=== PATIENT | female | born 1930 | race Caucasian/White ===

== ENCOUNTER 2019-02-19 14:47 | Emergency (ER) | payer MEDICARE, OTHER ==
--- NOTE | 2019-02-19 15:57 | EDM.PDOC ---
ED HPI GENERAL MEDICAL PROBLEM - General Chief Complaint: Lower Extremity Injury/Pain Stated Complaint: GOUT RIGHT FOOT Time Seen by Provider: 02/19/19 15:11 Source of Information: Reports: Patient History Limitations: Reports: No Limitations - History of Present Illness INITIAL COMMENTS - FREE TEXT/NARRATIVE: This lady comes in complaining of gout. The left foot has been swollen and red very painful since last night. She had gout in the left foot about 2 months ago. The only medication she's taken is Tylenol. Right Foot Pain Score (Numeric/FACES): 10 - Related Data Allergies Allergy/AdvReac Type Severity Reaction Status Date / Time No Known Allergies Allergy Verified 02/19/19 15:13 Home Meds: Home Meds Aspirin [Yared Chewable] 81 mg PO 08/01/13 [History] Furosemide 30 mg PO DAILY 08/01/13 [History] Metoprolol Tartrate [Lopressor] 75 mg PO BID 08/01/13 [History] rOPINIRole HCl [Ropinirole HCl] 0.5 mg PO BEDTIME 08/01/13 [History] Albuterol [Ventolin HFA] 2 puff IH Q4HR 02/19/19 [History] Albuterol/Ipratropium [DuoNeb 3.0-0.5 MG/3 ML] 3 ml IH Q4HR 02/19/19 [History] Budesonide/Formoterol Fumarate [Symbicort 80-4.5 Mcg Inhaler] 2 puff IH BID [History] Cyanocobalamin (Vitamin B-12) [B-12] 1,000 mcg PO DAILY 02/19/19 [History] Magnesium Oxide [Magnesium] 400 mg PO DAILY 02/19/19 [History] Ubidecarenone [Co Q-10] 200 mg PO DAILY 02/19/19 [History] atorvaSTATin [Lipitor] 40 mg PO BEDTIME 02/19/19 [History] Past Medical History HEENT History: Reports: Cataract, Impaired Vision Cardiovascular History: Reports: Heart Valve Replacement, Hypertension, [place] Respiratory History: Reports: Asthma, Bronchitis, Recurrent Gastrointestinal History: Reports: Cholelithiasis [employer] History: Reports: Musculoskeletal History: Reports: Arthritis, Fracture, Gout Psychiatric History: Reports: Depression - Past Surgical History HEENT Surgical History: Reports: Cataract Surgery Cardiovascular Surgical History: Reports: Coronary Artery Bypass, Coronary Artery Stent GI Surgical History: Reports: Bariatric Procedure, Cholecystectomy Female Surgical History: Reports: Hysterectomy Social & Family History - Tobacco Use Smoking Status *Q: Never Smoker - Caffeine Use Caffeine Use: Reports: Coffee - Recreational Drug Use Recreational Drug Use: No Review of Systems - Review of Systems Review Of Systems: ROS reveals no pertinent complaints other than HPI. ED EXAM, GENERAL - Physical Exam Exam: See Below Exam Limited By: No Limitations General Appearance: Alert, WD/WN, No Apparent Distress Extremities: Other (There is redness warmth and swelling to the first metatarsophalangeal joint of the right foot. This looks like typical gout.) Course - Vital Signs Last Recorded V/S: Last Vital Signs Temp 36.7 C 02/19/19 15:07 Pulse 78 02/19/19 15:05 Resp 16 02/19/19 15:07 BP 198/87 H 02/19/19 15:07 Pulse Ox 93 L 02/19/19 15:07 - Re-Assessments/Exams Free Text/Narrative Re-Assessment/Exam: 02/19/19 16:00 I told her about culture saying that she is not interested in trying that 02/19/19 16:00. Her blood pressure is noted. She's not having any kind of end organ damage so that will be treated. She is having a fair amount of pain. Departure - Departure Time of Disposition: 15:57 Disposition: Home, Self-Care 01 Condition: Fair Clinical Impression: Gout of right foot - Discharge Information Referrals: Bijal Choe PA [Primary Care Provider] - Additional Instructions: Take Narco 5/325 (#18) one tablet every 4-6 hours as needed for pain. This medication can cause sedation that could lead to falls. If abused it could be addicting. You may also take some Aleve one or 2 tablets twice daily. This medication can upset your stomach and even cause ulcers. It can raise your blood pressure and can affect your kidneys. The gout attack will last several days. Since this is the second one you've had recently you should talk with your DrMimi about possibly being put on medicine to prevent gout. You also should have your blood pressure checked within the next few days when your pain is under control.
[2019-02-19 16:06] VITALS: BP 178/85
== END 2019-02-19 16:18 | disposition home or self-care (01) ==
LOC: JP.ED 14:47
DX: M10.9 Gout, unspecified (principal); Z79.899 Other long term (current) drug therapy
CPT/HCPCS: 99283